=== PATIENT | female | born 1965 | race Caucasian/White ===

== ENCOUNTER → 2018-01-22 | Outpatient (CLI) | payer BC ==
[~2018-01-22] MED LIST: AMIT25TA PO; BUTA1CAP60 PO; CALC-46 PO; CHOL200074 PO; CLON1TAB11 PO; CYCL-259 PO; DICLOFENAC PO; DIVA250T4 PO; ESTR0.6246 PO; ESTR30CR VG; FLUO20TA25 PO; FROV2.5T4 PO; GABA600T2 PO; HYDR-3245 PO; LEVO112T4 PO; LEVO150T5 PO; LIDOCAINE JELLY TP; MULT1TAB60 PO; ONDA8TAB12 PO; OXYC-307 PO; TOPI100T8 PO; TRIA16.52 INH; TRIA16.52 NAS; TRIAMCINOLONE CREAM TP; WOMENS ONE A DAY PO; ZOLM5TAB8 NAS
== END | disposition home or self-care (01) ==
LOC: CFH 10:36
PROVIDERS: ATTEND Physical Medicine & Rehabilitation
DX: M43.22 Fusion of spine, cervical region (principal)
CPT/HCPCS: 72125

== ENCOUNTER 2020-05-04 09:24 | Outpatient (CLI) | payer BC ==
[~2020-05-04 09:24] MED LIST changes: -CYCL-259 PO; +CYCL10TA2 PO; -GABA600T2 PO; +GABA600T7 PO; -HYDR-3245 PO; +HYDR1TAB53 PO; +MULT-449 PO; -MULT1TAB60 PO; -OXYC-307 PO; +OXYC-380 PO
== END 2020-05-04 23:59 | disposition home or self-care (01) ==
LOC: RAD 09:24
PROVIDERS: ATTEND Internal Medicine Gastroenterology
DX: R13.19 Other dysphagia (principal); Z98.1 Arthrodesis status
CPT/HCPCS: 74230